=== PATIENT | female | born 2005 | race Caucasian/White ===

== ENCOUNTER 2024-11-17 15:51 | Emergency (ER) | payer SELFPAY ==
--- NOTE | 2024-11-17 16:27 | RAD REPORT ---
EXAMINATION: ONE VIEW CHEST XR CLINICAL INDICATION: Chest pain;Dyspnea TECHNIQUE: Frontal chest projection is submitted. Examination is limited by patient positioning and t echnique. COMPARISON: No prior exam. FINDINGS: The lungs are well inflated and clear. The heart is normal in size. No displaced fractures identified . IMPRESSION: No acute intrathoracic abnormalities.
[2024-11-17 16:58] LABS: Absolute Monocytes 0.1 K/uL (0.1-1.3); Absolute Neutrophil 1.1 K/uL (1.8-8.0); Basophils % 0.7 % (0-1.3); Eosinophils % 1.6 % (0-4.4); Hematocrit 29.1 % (36.0-45.0); Hemoglobin 9.5 g/dL (12.0-15.0); Lymphocytes % 44.1 % (15.3-44.8); MCH 25.4 pg (27.0-35.0); MCHC 32.8 g/dL (32.0-36.0); MCV 77.6 fL (80-100); MPV 7.7 fL (7.6-11.3); Monocytes % 5.8 % (3.3-12.3); Neutrophils % 47.8 % (41.7-73.7); Nucleated Red Blood Cells % 0.1 % (0-0); Platelets 240 thou/uL (152-406); RBC Red Blood Cell Count 3.75 M/uL (3.86-4.86); Red Cell Distribution Width 14.5 % (12.1-15.2)
[2024-11-17 17:09] LABS: PT Prothrombin Time 12.2 SECONDS (9.4-12.5); Protime INR 1.16
[2024-11-17 17:17] LABS: ALT/SGPT 18 U/L (13-56); AST/SGOT 19 U/L (15-37); Albumin 3.6 g/dL (3.4-5.0); Alkaline Phosphatase 59 U/L (45-117); Anion Gap 10.1 mEq/L (5.0-15.0); BUN Blood Urea Nitrogen 6 mg/dL (7-18); Bicarbonate 22 mEq/L (21-32); Bilirubin Total 0.2 mg/dL (0.2-1.0); Globulin 3.5 g/dL (2.3-3.5); Glomerular Filtration Rate 114 ml/min (=/>90); Glucose Level 100 mg/dL (74-106); Magnesium 2.1 mg/dL (1.6-2.4); NT PRO-BNP 87 pg/mL (<125); Potassium 3.1 mEq/L (3.5-5.1); Protein, Total 7.1 g/dL (6.4-8.2); Sodium Level 139 mEq/L (136-145)
[2024-11-17 17:18] LABS: Bilirubin Direct < 0.2 mg/dL (0-0.2); Troponin High Sensitivity < 3.0 pg/mL (<58.9)
[2024-11-17 17:19] LABS: D-Dimer < 0.215 FEUug/mL (0-0.500)
--- NOTE | 2024-11-17 18:33 | RAD REPORT ---
EXAMINATION: CTA CHEST PE CLINICAL INDICATION: Chest pain;Dyspnea TECHNIQUE: This examination was performed according to an angiographic protocol with 3D post-processi ng. This involves 3D reconstructions, MIPs, volume rendered images and/or shaded surface rendering. One or more of the following dose reduction techniques were used: Automated exposure control, adjustm ent of the mA and/or kV according to patient size, and/or iterative reconstruction. Unless otherwise specified, incidental findings do not require dedicated imaging follow-up. COMPARISON: No prior exam. FINDINGS: PULMONARY ARTERIES: Normal caliber. No evidence of pulmonary emboli to the subsegmental level. THORACIC AORTA: Normal caliber and configuration. LUNGS: No evidence of airspace or interstitial process. No nodules. PLEURA: No pleural effusion. No pneumothorax. MEDIASTINUM AND LYMPH NODES: No mediastinal mass or fluid collection. Normal size mediastinal, hilar, and axillary lymph nodes. OSSEOUS STRUCTURES AND CHEST WALL: Intact. UPPER ABDOMEN: No significant abnormalities. IMPRESSION: No evidence of pulmonary emboli to the subsegmental level.
[2024-11-17] MEDS ORDERED: POTASSIUM 25 MEQ EFFERV TAB ONE (19:03)
--- NOTE | 2024-11-17 20:50 | ER ---
Nurse's Notes [facility] Name: Brina Villa Age: 19 yrs Sex: Female : 2005 Arrival Date: 11/17/2024 Time: 15:51 Bed 25 Private MD: Diagnosis: Postural Orthostatic Tachycardia Syndome;Anemia, unspecified;Hypokalemia Presentation: 11/17 16:00 Chief complaint: Patient states: At 6 AM started having SOB, R sided CP, palpitations, ll1 tremors. Coronavirus screen: Client denies travel out of the [place] in the last 14 days. difficulty breathing, fatigue, shortness of breath, Client presents with at least one sign or symptom that may indicate coronavirus-19. Standard/surgical mask placed on the client. Ebola Screen: Patient denies travel to an Ebola-affected area in the 21 days before illness onset. Initial Sepsis Screen: Does the patient meet any 2 criteria? No. Patient's initial sepsis screen is negative. Does the patient have a suspected source of infection? No. Patient's initial sepsis screen is negative. Risk Assessment: Do you want to hurt yourself or someone else? Patient reports no desire to harm self or others. Onset of symptoms was November 17, 2024. 16:00 Method Of Arrival: Wheelchair ll1 16:00 Acuity: DEEP 2 ll1 Historical: - Allergies: 16:03 all histamines; ll1 16:03 gluten; ll1 16:03 red meat; ll1 - PMHx: 16:03 gastroparesis; POTS; IBS; fluid around heart; low BP; Anemia; ll1 - PSHx: 16:03 None; ll1 - Immunization history:: Adult Immunizations up to date. - Social history:: Smoking status: Reported history of juuling and/or vaping. Patient denies any tobacco usage or history of. Screenin:11 [facility] ED Fall Risk Assessment (Adult) History of falling in the last 3 months, iw including since admission No falls in past 3 months (0 pts) Confusion or Disorientation No (0 pts) Intoxicated or Sedated No (0 pts) Impaired Gait No (0 pts) Mobility Assist Device Used No (0 pt) Altered Elimination No (0 pt) Score/Fall Risk Level 0 - 2 = Low Risk Oriented to surroundings, Maintained a safe environment. Abuse screen: Denies threats or abuse. Denies injuries from another. Nutritional screening: No deficits noted. Tuberculosis screening: No symptoms or risk factors identified. Assessment: 17:18 General: Appears in no apparent distress. Behavior is anxious. Pain: Complains of pain iw in head and chest. Neuro: Level of Consciousness is awake, alert, obeys commands, Oriented to person, place, time, situation, Moves all extremities. Cardiovascular: Patient's skin is warm and dry. Respiratory: Respiratory effort is even, unlabored, Respiratory pattern is regular. Derm: Skin is pale. Musculoskeletal: Range of motion: intact in all extremities. 19:10 Reassessment: Patient appears in no apparent distress at this time. Patient and/or iw family updated on plan of care and expected duration. Pain level reassessed. Patient is alert, oriented x 3, equal unlabored respirations, skin warm/dry/pink. Patient states feeling better. Pain: Denies pain. Pain does not radiate. Pain began. 19:47 Reassessment: Patient appears in no apparent distress at this time. pt request to iw remove IV, repeat lactate sent to lab. 21:06 Reassessment: Patient appears in no apparent distress at this time. No changes from vc1 previously documented assessment. Patient and/or family updated on plan of care and expected duration. Pain level reassessed. Patient is alert, oriented x 3, equal unlabored respirations, skin warm/dry/pink. Vital Signs: 16:00 BP 115 / 80; Pulse 92; Resp 22; Temp 97.9; Weight 34.02 kg; Height 4 ft. 9 in. ; Pain ll1 8/10; 19:11 BP 101 / 69; Pulse 65; Resp 16; Pulse Ox 100% on R/A; iw 16:00 Body Mass Index 16.23 (34.02 kg, 144.78 cm) ll1 16:00 Pain Scale: Adult ll1 ED Course: 15:55 Patient arrived in ED. al6 15:58 Claudine Toure PA-C is PHCP. sb4 15:59 Jessica Mcfarland MD is Attending Physician. sb4 16:03 Triage completed. ll1 16:06 Arm band placed on. ll1 16:06 Patient has correct armband on for positive identification. Provided Education on: . iw Client placed on continuous cardiac and pulse oximetry monitoring. NIBP monitoring applied. 16:14 Radiology exam delayed due to lab results not completed at this time. (BUN/Creatinine) id test not completed at this time. IV insertion attempt and/or patient not having appropriate IV at this time. 16:23 XRAY Chest (1 view) In Process Unspecified. EDMS 16:50 Initial lab(s) drawn, by me, sent to lab. Inserted saline lock: 20 gauge in right iw antecubital area, using aseptic technique. Blood collected. Flushed with 10 mL NS. 17:18 Violet Grayson, RN is Primary Nurse. iw 17:25 Radiology exam delayed due to test not completed at this time. jc4 17:50 Test, Serum Sent. iw 18:27 CT Chest For PE Angio In Process Unspecified. EDMS 19:48 No provider procedures requiring assistance completed. IV discontinued, intact, iw bleeding controlled, No redness/swelling at site. Pressure dressing applied. Patient maintains SpO2 saturation greater than 95% on room air. Administered Medications: 19:12 Drug: Potassium PO Effervescent Tablet 50 mEq PO once; dissolve in 4 ounces of water or iw juice Route: PO; Medication: 17:18 VIS not applicable for this client. iw Outcome: 20:49 Discharge ordered by . sb4 21:05 Discharged to home via wheelchair, with significant other, vc1 21:05 Condition: stable 21:05 Discharge instructions given to patient, Instructed on discharge instructions, follow up and referral plans. Demonstrated understanding of instructions, follow-up care, 21:07 Patient left the ED. vc1 Signatures: Dispatcher [employer] EDNY Violet Grayson, GALINA MOJICA Joseph Quinn Lynsay RN RN ll1 Odalis Mohan RN RN vc1 Claudine Toure, PA-C PAAngelito Everett4 Samina Andrews
--- NOTE | 2024-11-17 20:50 | EDPHYS ---
Physician Documentation [facility] Name: Brina Villa Age: 19 yrs Sex: Female : 2005 Arrival Date: 11/17/2024 Time: 15:51 Bed 25 Private MD: ED Physician Jessica Mcfarland HPI: 11/17 16:07 This 19 yrs old Female presents to ER via Wheelchair with complaints of Chest Pain, sb4 Breathing Difficulty. 16:07 Patient reports right-sided chest pain and shortness of breath that began this morning sb4 additionally, she states she feels like her whole body is numb/pins and needle sensation. States that she was told about a month ago that she had "fluid around her heart "but nothing has been done about it. Additionally, she was told she is anemic and was supposed to receive a blood transfusion but did not consent to it because she was "scared "she is currently taking medications for gastritis and anxiety. Historical: - Allergies: 16:03 all histamines; ll1 16:03 gluten; ll1 16:03 red meat; ll1 - PMHx: 16:03 gastroparesis; POTS; IBS; fluid around heart; low BP; Anemia; ll1 - PSHx: 16:03 None; ll1 - Immunization history:: Adult Immunizations up to date. - Social history:: Smoking status: Reported history of juuling and/or vaping. Patient denies any tobacco usage or history of. ROS: 16:09 Constitutional: Negative for fever, chills, and weight loss, sb4 16:09 Cardiovascular: Positive for chest pain, 16:09 Respiratory: Positive for shortness of breath, 16:09 Neuro: Positive for tingling, 16:09 All other systems are negative, Exam: 16:09 Head/Face: Normocephalic, atraumatic. Eyes: Extra-ocular motions intact. Periorbital sb4 areas with no swelling, redness, or edema. ENT: Mucous membranes moist. Cardiovascular: Regular rate and rhythm with a normal S1 and S2. Abdomen/GI: Soft, non-tender, no distension. Skin: Warm, dry with normal turgor. Normal color with no rashes, no lesions, and no evidence of cellulitis. 16:09 Constitutional: The patient appears alert, awake, anxious, pale, 16:09 Respiratory: the patient does not display signs of respiratory distress, Respirations: normal, Breath sounds: are clear throughout, Respiratory rate: 22 Vital Signs: 16:00 BP 115 / 80; Pulse 92; Resp 22; Temp 97.9; Weight 34.02 kg; Height 4 ft. 9 in. ; Pain ll1 8/10; 19:11 BP 101 / 69; Pulse 65; Resp 16; Pulse Ox 100% on R/A; iw 16:00 Body Mass Index 16.23 (34.02 kg, 144.78 cm) ll1 16:00 Pain Scale: Adult ll1 MDM: 15:59 Medical Screening Exam initiated sb4 22:16 Data reviewed: vital signs, nurses notes, lab test result(s), EKG, radiologic studies, sb4 and as a result, I will discharge patient. Counseling: I had a detailed discussion with the patient and/or guardian regarding the historical points, exam findings, and any diagnostic results supporting the discharge/admit diagnosis, lab results, radiology results, the need for outpatient follow up, for definitive care, to return to the emergency department if symptoms worsen or persist or if there are any questions or concerns that arise at home. 11/17 16:06 Order name: Basic Metabolic Panel; Complete Time: 17:23 sb4 11/17 16:06 Order name: CBC with Diff; Complete Time: 17:03 sb4 11/17 16:06 Order name: D-Dimer; Complete Time: 17:23 sb4 11/17 16:06 Order name: LFT's; Complete Time: 17:23 sb4 11/17 16:06 Order name: Magnesium; Complete Time: 17:23 sb4 11/17 16:06 Order name: NT PRO-BNP; Complete Time: 17:23 sb4 11/17 16:06 Order name: PT-INR; Complete Time: 17:23 sb4 11/17 16:06 Order name: Troponin HS; Complete Time: 17:23 sb4 11/17 16:06 Order name: Test, Serum; Complete Time: 18:04 sb4 11/17 16:06 Order name: Blood Culture Adult (2) sb4 11/17 16:06 Order name: Lactate w/ 2H reflex if indic.; Complete Time: 17:23 sb4 11/17 17:22 Order name: Ghost Lactate-NO COLLECT Timer; Complete Time: 19:22 EDMS 11/17 18:37 Order name: Lactate w/ 2H reflex if indic.; Complete Time: 20:13 sb4 11/17 16:06 Order name: XRAY Chest (1 view); Complete Time: 16:29 sb4 11/17 16:06 Order name: CT Chest For PE Angio; Complete Time: 18:36 sb4 11/17 16:06 Order name: EKG; Complete Time: 16:06 sb4 11/17 16:06 Order name: Cardiac monitoring; Complete Time: 19:12 sb4 11/17 16:06 Order name: EKG - Nurse/Tech; Complete Time: 17:28 sb4 11/17 16:06 Order name: IV Saline Lock; Complete Time: 17:00 sb4 11/17 16:06 Order name: Labs collected and sent; Complete Time: 17:00 sb4 11/17 16:06 Order name: O2 Per Protocol; Complete Time: 17:50 sb4 11/17 16:06 Order name: O2 Sat Monitoring; Complete Time: 17:50 sb4 EC:28 Rate is 63 beats/min. Rhythm is regular, Sinus Rhythm. DE interval is shortened at 86 sb4 msec. QRS interval is normal at 86 msec. QT interval is normal at 410 msec. No Q waves. T waves are Normal. No ST changes noted. Clinical impression: No evidence of ischemia. Interpreted by me. Reviewed by me. Administered Medications: 19:12 Drug: Potassium PO Effervescent Tablet 50 mEq PO once; dissolve in 4 ounces of water or iw juice Route: PO; Disposition Summary: 11/17/24 20:49 Discharge Ordered Notes: Location: Home sb4 Problem: new sb4 Symptoms: have improved sb4 Condition: Stable sb4 Diagnosis - Postural Orthostatic Tachycardia Syndome sb4 - Anemia, unspecified sb4 - Hypokalemia sb4 Followup: sb4 - With: Emergency Department - When: As needed - Reason: Trouble breathing, Worsening of condition Discharge Instructions: - Discharge Summary Sheet sb4 - Postural Orthostatic Tachycardia Syndrome sb4 - Iron Deficiency Anemia, Adult, Lput-ic-Zmeb sb4 - Hypokalemia sb4 Forms: - Patient Portal Instructions sb4 - Leadership Thank You Letter sb4 Signatures: Dispatcher [employer] Violet Pedro RN Erika Olson RN RN ll1 Claudine Toure, PA-C PA-Talon sb4 Corrections: (The following items were deleted from the chart) 16:07 16:06 BASIC METABOLIC PANEL+C.LAB.BRZ ordered. EDMS EDMS 16:07 16:06 CBC+H.LAB.BRZ ordered. EDMS EDMS 16:07 16:06 D-DIMER+COAG.LAB.BRZ ordered. EDMS EDMS 16: 16:06 HEPATIC FUNCTION+C.LAB.BRZ ordered. EDMS EDMS 16: 16:06 MAGNESIUM+C.LAB.BRZ ordered. EDMS EDMS 16: 16:06 PROBNP+C.LAB.BRZ ordered. EDMS EDMS 16:07 16:06 PROTIME (+INR)+COAG.LAB.BRZ ordered. EDMS EDMS 16:07 16:06 Troponin High Sensitivity+C.LAB.BRZ ordered. EDMS EDMS 16:07 16:06 TEST, SERUM+SC.LAB.BRZ ordered. EDMS EDMS 16:07 16:06 BLOOD CULTURE*+BA.LAB.BRZ ordered. EDMS EDMS 16:07 16:06 LACTATE+C.LAB.BRZ ordered. EDMS EDMS 16:07 16:07 TYPE AND SCREEN+BB.LAB.BRZ ordered. EDMS EDMS 18:37 18:37 LACTATE+C.LAB.BRZ ordered. EDMS EDMS
[2024-11-19 09:39] VITALS: TEMP 97.9
[2024-11-19 09:41] VITALS: BP 101/69; O2SAT 100
--- NOTE | 2024-11-22 12:21 | EKG ---
Test Date: 2024-11-17 Test Time: 17:27:01 Brokerage Purchase And Sale Clerk: BRIA MEASUREMENT RESULTS: Intervals: Rate: 63 ME: 86 QRSD: 86 QT: 410 QTc: 419 [place]: P: 22 ME: 86 QRS: 68 T: 36 INTERPRETIVE STATEMENTS: Sinus rhythm with short ME Otherwise normal ECG No previous ECG available for comparison Electronically Signed On 11-22-24 12:15:02 WEB DEVELOPMENT INSTRUCTOR by Tobi Mccarthy
== END 2024-11-17 21:07 | disposition home or self-care (01) ==
LOC: ER 15:51
DX: G90.A Postural orthostatic tachycardia syndrome [POTS] (principal); D64.9 Anemia, unspecified; E87.6 Hypokalemia
CPT/HCPCS: 36415; 71045; 71275; 80048; 80076; 83605; 83735; 83880; 84484; 84703; 85025; 85379; 85610; 87040; 93005; 99284; Q9967

== ENCOUNTER 2024-11-24 17:29 | Emergency (ER) | payer SELFPAY ==
--- OUTSIDE RECORDS SUMMARY | 2024-11-24 17:32 | XMS REPORT | Clinical Summary ---
Author Name Unknown Organization [facility] Address [address] [place] [id number] Care Team Providers Care Antisqueak Worker Name Role Phone Marcelino Thompson Unavailable Herb Miranda MD Primary Care Provider [phone] Encounters Date Type Department Care Team Description 09/15/2024 8:15 PM POLICEMAN Ancillary Procedure Image Library [address] [place] [address] Herb Miranda MD Cancer 09/15/2024 8:10 PM POLICEMAN Ancillary Procedure Image Library [address] [place] [address] Herb Miranda MD Cancer 09/15/2024 8:05 PM POLICEMAN Ancillary Procedure Image Library [address] [place] [address] Herb Miranda MD Cancer 09/15/2024 8:00 PM POLICEMAN Ancillary Procedure Image Library [address] [place] [address] Herb Miranda MD Cancer after 11/25/2023 Social History Tobacco Use Types Packs/Day Years Used Date Smoking Tobacco: Never Assessed Comments Unknown Sex and Gender Information Value Date Recorded Sex Assigned at Not on file Legal Sex Female 2:16 PM CDT Gender Identity Not on file Sexual Orientation Not on file Plan of Treatment Upcoming Encounters Date Type Department Care Team (Late st Contact Info) Description 12/20/2024 8:00 AM CDT NPR MDA PATIENT ACCESS Dea Gallo MD [address] [place] [id number] [email or web address] 12/23/2024 10:00 AM CDT [facility]astroenterology, Hepatology & Nutrition [address] [facility] [address], 7th [place] [address] Herb Miranda MD [address] [place] [address] [email or web address] Health Maintenance Due Date Last Done Comments COVID-19 Vaccine ( season) 2024 03/10/2021, 02/17/2021 Influenza Vaccine (#1) 2024 , 06/26/2020, 08/12/2019, Additional history exists Pneumococcal Vaccine Aged Out No long er eligible based on patient's age to complete this topic Procedures Procedure Name Priority Date/Time Associated Diagnosis Comments OSI CHEST Routine 09/07/2024 9:56 AM POLICEMAN Cancer OSI CHEST Routine 07/29/2024 9:56 AM CDT Cancer OSI CHEST Routine 06/06/2024 9:56 AM CDT Cancer OSI CHEST Routine 05/12/2024 9:55 AM CDT Cancer after 11/25/2023 Results * OSI Chest (09/07/2024 9:56 AM POLICEMAN) Only the most recent of4 resultswithin the time period is included. Narrative Systemgenerated, Documentation - 09/15/2024 9:56 AM POLICEMAN Study acquired at another institution. For comparison only. No MD Gutierrez originated interpretation requested or available. Herb Miranda MD IMG OUTSIDE IMAGE ORDERABLES F inal Result after 11/25/2023 Insurance BCBS PPO POS OUT OF STATE GENERIC BCBS PPO POS OUT OF STATE GENERIC Member Subscriber Plan / Payer (Ef fective 2023-Present) Name:Brina Villa Relation to Subscriber:Child Name:REA DE ANDA Date of :1982 (Home) Address: [address] [place] [id number] Payer ID:[id number] Type:PPO Address: [address] [place] [id number] Care Teams Antisqueak Worker Relationship Specialty Start Date End Date Marcelino Thompson [address] [place] [address] PCP - External Follow Up A 08/06/24 [place] [address] [place] [phone] [email or web address] PCP - General Gastroenterology, Hepatology and Nutrition 08/12/24
--- NOTE | 2024-11-24 19:02 | RAD REPORT ---
EXAMINATION: ONE VIEW CHEST XR CLINICAL INDICATION: DYSPNEA TECHNIQUE: Frontal chest projection is submitted. Examination is limited by patient positioning and t echnique. COMPARISON: 11/17/2024 FINDINGS: The lungs are well inflated and clear. The heart is normal in size. No displaced fractures identified . IMPRESSION: No acute intrathoracic abnormalities.
--- NOTE | 2024-11-24 19:28 | ER ---
Nurse's Notes [facility] Name: Brina Villa Age: 19 yrs Sex: Female : 2005 Arrival Date: 11/24/2024 Time: 17:29 Bed 16 Private MD: Diagnosis: Hypotension, unspecified Presentation: 11/24 17:36 Chief complaint: Patient states: STATES LOW BP 80'S SYSTOLIC. STATES TOOK MIDODRINE db TODAY AT 11AM AND 1 OR 2PM. COMPLAINS OF FEELING WEAK. STATES HAS PODS. Coronavirus screen: Client denies travel out of the [place] in the last 14 days. At this time, the client does not indicate any symptoms associated with coronavirus-19. Ebola Screen: Patient negative for fever greater than or equal to 101.5 degrees Fahrenheit, and additional compatible Ebola Virus Disease symptoms Patient denies exposure to infectious person. Patient denies travel to an Ebola-affected area in the 21 days before illness onset. No symptoms or risks identified at this time. Initial Sepsis Screen: Does the patient meet any 2 criteria? No. Patient's initial sepsis screen is negative. Does the patient have a suspected source of infection? No. Patient's initial sepsis screen is negative. Risk Assessment: Do you want to hurt yourself or someone else? Patient reports no desire to harm self or others. Onset of symptoms was November 24, 2024. 17:36 Method Of Arrival: Ambulatory db 17:36 Acuity: DEEP 3 db Triage Assessment: 17:38 General: Appears in no apparent distress. comfortable, Behavior is calm, cooperative. db Pain: Denies pain. Neuro: Level of Consciousness is awake, alert, obeys commands, Oriented to person, place, time, situation. Respiratory: Reports shortness of breath Airway is patent Respiratory effort is even, unlabored, Respiratory pattern is regular, symmetrical. AS400 DEVELOPER: 17:38 LMP 11/17/2024, unknown db Historical: - Allergies: 17:38 all histamines; db 17:38 Gluten; db 17:38 red meat; db - PMHx: 17:38 Anemia; Gastroparesis; fluid around heart; ibs; low bp; POTS; db - Immunization history:: Adult Immunizations unknown. - Infectious Disease History:: Denies. - Social history:: Smoking status: unknown. Screenin:15 [facility] ED Fall Risk Assessment (Adult) History of falling in the last 3 months, kj2 including since admission No falls in past 3 months (0 pts) Confusion or Disorientation No (0 pts) Intoxicated or Sedated No (0 pts) Impaired Gait No (0 pts) Mobility Assist Device Used No (0 pt) Altered Elimination No (0 pt) Score/Fall Risk Level 0 - 2 = Low Risk Maintained a safe environment, Hourly rounding (assess needs \T\ fall precautionary measures) done. Abuse screen: Denies threats or abuse. Denies injuries from another. Nutritional screening: No deficits noted. Tuberculosis screening: No symptoms or risk factors identified. Assessment: 19:15 General: Appears in no apparent distress. Behavior is calm, cooperative. Pain: Denies kj2 pain. Neuro: Level of Consciousness is awake, alert, obeys commands, Oriented to person, place, time, situation. Cardiovascular: Patient's skin is warm and dry. Respiratory: Airway is patent Respiratory effort is unlabored. GI: No signs and/or symptoms were reported involving the gastrointestinal system. : No signs and/or symptoms were reported regarding the genitourinary system. 19:36 Reassessment: Patient appears in no apparent distress at this time. Patient is alert, kj2 oriented x 3, equal unlabored respirations, skin warm/dry/pink. 19:40 Reassessment: pt refused IV placement and other orders, provider notified. kj2 Vital Signs: 17:36 BP 97 / 45; Pulse 92; Resp 18; Temp 98.3; Pulse Ox 98% ; Weight 34.02 kg; Height 4 ft. db 9 in. ; 19:36 BP 97 / 58; Pulse 82; Resp 18; Temp 98.4; Pulse Ox 98% on R/A; kj2 17:36 Body Mass Index 16.23 (34.02 kg, 144.78 cm) db ED Course: 17:31 Patient arrived in ED. gm2 17:33 Agueda Ordaz [facility]-C [facility]. kb 17:33 Jerry Ruth MD is Attending Physician. kb 17:38 Triage completed. db 17:38 Arm band placed on Patient placed in an exam room. db 18:57 Chest Single View XRAY In Process Unspecified. EDMS 19:15 Patient has correct armband on for positive identification. Adult w/ patient. Provided kj2 Education on: call light. 19:27 Katelynn Quinn, RN is Primary Nurse. kj2 19:39 No provider procedures requiring assistance completed. kj2 19:41 Patient did not have IV access during this emergency room visit. kj2 Administered Medications: 19:39 Not Given (Patient Refused): ns 0.9% 1000 ml IV at 1000 ml once; to be given as a bolus kj2 over 60 minutes Medication: 19:15 VIS not applicable for this client. kj2 Outcome: 19:28 Discharge ordered by . kb 19:39 Discharged to home via wheelchair, with family, kj2 19:39 Condition: stable 19:39 Discharge instructions given to patient, Instructed on discharge instructions, follow up and referral plans. Demonstrated understanding of instructions, follow-up care, 19:41 Patient left the ED. kj2 Signatures: Dispatcher [employer] EDMS Agueda Ordaz, GAMAL-C MILLER APPRENTICE-Carolina Pearson, RN RN Carrie Larsen 2 Katelynn Quinn, RN RN kj2
--- NOTE | 2024-11-24 19:28 | EDPHYS ---
Physician Documentation [facility] Name: Brina Villa Age: 19 yrs Sex: Female : 2005 Arrival Date: 11/24/2024 Time: 17:29 Bed 16 Private MD: ED Physician Jerry Ruth HPI: 11/24 19:26 This 19 yrs old Female presents to ER via Ambulatory with complaints of Low Blood kb pressure, General Weakness. 19:28 Pt is a 19 year old female who presents for hypotension. STates she has chronic kb hypotension and takes midodrine as needed. Reports systolic bp in the 80s this morning so she took 2 midodrine today. Normal BP is high 90s/low 100s systolic. Reports dizziness and fatigue, which she reports is normal for her when her BP gets low. . 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 - Infectious Disease History:: Denies. - Social history:: Smoking status: unknown. ROS: 19:30 Constitutional: As per HPI kb Exam: 19:30 Constitutional: This is a well developed, well nourished patient who is awake, alert, kb and in no acute distress. Head/Face: Normocephalic, atraumatic. ENT: Moist Mucous membranes Cardiovascular: Regular rate Respiratory: Respirations even and unlabored. No increased work of breathing. Talking in full sentences Skin: Warm, dry with normal turgor. Normal color. MS/ Extremity: Pulses equal, no cyanosis. Neurovascular intact. Full, normal range of motion. Neuro: Awake and alert, GCS 15, oriented to person, place, time, and situation. Vital Signs: 17:36 BP 97 / 45; Pulse 92; Resp 18; Temp 98.3; Pulse Ox 98% ; Weight 34.02 kg; Height 4 ft. db 9 in. ; 19:36 BP 97 / 58; Pulse 82; Resp 18; Temp 98.4; Pulse Ox 98% on R/A; kj2 17:36 Body Mass Index 16.23 (34.02 kg, 144.78 cm) db MDM: 17:33 Medical Screening Exam initiated 19:30 Data reviewed: vital signs, nurses notes. 19:30 Differential diagnosis: hypotension, anemia, dehydration. Counseling: I had a detailed discussion with the patient and/or guardian regarding the historical points, exam findings, and any diagnostic results supporting the discharge/admit diagnosis, the need for outpatient follow up, a family practitioner, to return to the emergency department if symptoms worsen or persist or if there are any questions or concerns that arise at home. ED course: Pt was moved into a room and is requesting to be discharged. States she knows how to take care of this at home and doesn't want to stay any longer. States she already knows her blood work will show anemia, but not low enough for a blood transfusion because that is what she is always told. I asked if we could give her IV fluids, but she denied. States she will drink liquid iv at home. Risks discussed and pt is awake, alert and oriented x3. Has decision making capacity. . 11/24 17:40 Order name: Chest Single View XRAY; Complete Time: 19:03 11/24 17:40 Order name: Cardiac monitoring 11/24 17:40 Order name: EKG - Nurse/Tech 11/24 17:40 Order name: IV Saline Lock 11/24 17:40 Order name: Labs collected and sent 11/24 17:40 Order name: NPO 11/24 17:40 Order name: O2 Per Protocol 11/24 17:40 Order name: O2 Sat Monitoring 11/24 17:40 Order name: Orthostatics Administered Medications: 19:39 Not Given (Patient Refused): ns 0.9% 1000 ml IV at 1000 ml once; to be given as a bolus kj2 over 60 minutes Disposition: 20:01 Co-signature as Attending Physician, Jerry Ruth MD I reviewed the patient's care rt provided by the Advanced Practice Provider and agree with the diagnosis and treatment plan. Disposition Summary: 11/24/24 19:28 Discharge Ordered Notes: Location: Home Condition: Stable kb Diagnosis - Hypotension, unspecified kb Followup: kb - With: Emergency Department - When: As needed - Reason: Worsening of condition Followup: kb - With: Private Physician - When: 2 - 3 days - Reason: Recheck today's complaints, Continuance of care, Re-evaluation by your physician Discharge Instructions: - Discharge Summary Sheet kb - Hypotension, [id number]-[id number] kb Forms: - Medication Reconciliation Form kb - Antibiotic Education kb - Prescription Opioid Use kb - Patient Portal Instructions kb - Leadership Thank You Letter kb Signatures: Dispatcher [employer] EDMS Agueda Ordaz, HAROON YEUNG-Carolina Pearson RN RN db Jerry Ruth MD MD rt Katelynn Quinn RN kj2 Corrections: (The following items were deleted from the chart) 19:30 19:28 Pt is a 19 year old female who presents for hypotension. STates she has chronic kb hypotension and takes midodrine as needed. Reports systolic bp in the 80s this morning so she took 2 midodrine today. Normal BP is high 90s/low 100s systolic. Reports dizziness, which she reports is normal for her when her BP gets low. . kb
[2024-11-24 19:46] VITALS: O2SAT 98
[2024-11-24 19:48] VITALS: BP 97/58; TEMP 98.4
== END 2024-11-24 19:41 | disposition home or self-care (01) ==
LOC: ER 17:29
DX: I95.9 Hypotension, unspecified (principal)
CPT/HCPCS: 71045; 99283

== ENCOUNTER 2024-12-14 08:57 | Emergency (ER) | payer SELFPAY ==
--- OUTSIDE RECORDS SUMMARY | 2024-12-14 09:01 | XMS REPORT | Clinical Summary ---
Author Name Unknown Organization [facility] Address [address] [place] [address] Care Team Providers Care [employer] Fsc[employer] Developer Name Role Phone Marcelino Thompson Unavailable Herb Miranda MD Primary Care Provider [phone] Encounters Date Type Department Care Team Description 09/15/2024 8:15 PM DIRECTOR BEHAVIORAL HEALTH Ancillary Procedure Image Library [address] [place] [id number] Herb Miranda MD Cancer 09/15/2024 8:10 PM DIRECTOR BEHAVIORAL HEALTH Ancillary Procedure Image Library [address] [place] [id number] Herb Miranda MD Cancer 09/15/2024 8:05 PM DIRECTOR BEHAVIORAL HEALTH Ancillary Procedure Image Library [address] [place] [id number] Herb Miranda MD Cancer 09/15/2024 8:00 PM DIRECTOR BEHAVIORAL HEALTH Ancillary Procedure Image Library [address] [place] [address] Herb Miranda MD Cancer after 12/15/2023 Social History Tobacco Use Types Packs/Day Years [...] NPR MDA PATIENT ACCESS Dea Gallo MD [facility] [place] [address] [email or web address] 12/23/2024 10:00 AM CDT [facility]astroenterology[facility] Hepatology & Nutrition [address] [place] [address] [address] [place] [address] Herb Miranda MD [address] [place] [address] [email or web address] Health Maintenance Due Date Last Done Comments COVID-19 Vaccine ( season) 2024 03/10/2021, 02/17/2021 Influenza Vaccine (#1) 2024 , 06/26/2020, 08/12/2019, Additional history exists Pneumococcal Vaccine Aged Out No long er eligible based on patient's age to complete this topic Procedures Procedure Name Priority Date/Time Associated Diagnosis Comments OSI CHEST Routine 09/07/2024 9:56 AM DIRECTOR BEHAVIORAL HEALTH Cancer OSI CHEST Routine 07/29/2024 9:56 AM CDT Cancer OSI CHEST Routine 06/06/2024 9:56 AM CDT Cancer OSI CHEST Routine 05/12/2024 9:55 AM CDT Cancer after 12/15/2023 Results * OSI Chest (09/07/2024 9:56 AM DIRECTOR BEHAVIORAL HEALTH) Only the most recent of4 resultswithin the time period is included. Narrative Systemgenerated, Documentation - 09/15/2024 9:56 AM DIRECTOR BEHAVIORAL HEALTH Study acquired at another institution. For comparison only. No MD Gutierrez originated interpretation requested or available. us Herb Miranda MD IMG OUTSIDE IMAGE ORDERABLES F inal Result after 12/15/2023 Insurance BCBS PPO POS OUT OF STATE GENERIC BCBS PPO POS OUT OF STATE GENERIC Care Teams [employer] F[employer] Developer Relationship Specialty Start Date End Date Marcelino Thompson [id number] [place] [address] PCP - External Follow Up A 08/06/24 [place] [address] [place] [id number] [email or web address] PCP - General Gastroenterology, Hepatology and Nutrition 08/12/24
[2024-12-14 10:31] LABS: Absolute Lymphocytes (CBC) 0.9 K/uL (0.7-4.9); Absolute Monocytes 0.3 K/uL (0.1-1.3); Absolute Neutrophil 2.2 K/uL (1.8-8.0); Basophils % 0.5 % (0-1.3); Eosinophils % 0.9 % (0-4.4); Hematocrit 25.1 % (36.0-45.0); Hemoglobin 8.3 g/dL (12.0-15.0); Lymphocytes % 27.3 % (15.3-44.8); MCH 24.6 pg (27.0-35.0); MCV 74.4 fL (80-100); MPV 7.5 fL (7.6-11.3); Monocytes % 8.8 % (3.3-12.3); Neutrophils % 62.5 % (41.7-73.7); Platelets 265 thou/uL (152-406); RBC Red Blood Cell Count 3.38 M/uL (3.86-4.86)
[2024-12-14 10:50] LABS: Anion Gap 9.3 mEq/L (5.0-15.0); BUN Blood Urea Nitrogen 14 mg/dL (7-18); Bicarbonate 23 mEq/L (21-32); Glomerular Filtration Rate 129 ml/min (=/>90); Glucose Level 78 mg/dL (74-106); Potassium 3.3 mEq/L (3.5-5.1); Sodium Level 139 mEq/L (136-145)
[2024-12-14 10:51] LABS: Troponin High Sensitivity < 3.0 pg/mL (<58.9)
--- NOTE | 2024-12-14 12:09 | RAD REPORT ---
Procedure: Chest Single View HISTORY: Chest pain COMPARISON: 2024 FINDINGS: The lungs appear clear of acute infiltrate. Lungs are hyperaerated. No significant pleural effusion noted. The heart is normal size. IMPRESSION: No acute abnormality is displayed.
[2024-12-14 15:57] LABS: Specific Gravity 1.022 (1.005-1.030)
--- NOTE | 2024-12-14 16:44 | RAD REPORT ---
EXAMINATION: CTA CHEST PE CLINICAL INDICATION: CHEST PAIN TECHNIQUE: This examination was performed according to an angiographic protocol with 3D post-processi ng. This involves 3D reconstructions, MIPs, volume rendered images and/or shaded surface rendering. One or more of the following dose reduction techniques were used: Automated exposure control, adjustm ent of the mA and/or kV according to patient size, and/or iterative reconstruction. Unless otherwise specified, incidental findings do not require dedicated imaging follow-up. COMPARISON: No prior exam. FINDINGS: PULMONARY ARTERIES: Normal caliber. No evidence of pulmonary emboli to the subsegmental level. THORACIC AORTA: Normal caliber and configuration. LUNGS: No evidence of airspace or interstitial process. No nodules. PLEURA: No pleural effusion. No pneumothorax. MEDIASTINUM AND LYMPH NODES: No mediastinal mass or fluid collection. Normal size mediastinal, hilar, and axillary lymph nodes. OSSEOUS STRUCTURES AND CHEST WALL: Intact. UPPER ABDOMEN: No significant abnormalities. IMPRESSION: No evidence of pulmonary emboli to the subsegmental level.
--- NOTE | 2024-12-14 17:25 | ER ---
Nurse's Notes [facility] Name: Brina Villa Age: 19 yrs Sex: Female : 2005 Arrival Date: 12/14/2024 Time: 08:57 Bed 26 Private MD: Diagnosis: Chest pain, unspecified Presentation: 12/14 09:48 Chief complaint: Right upper chest pain, palpitations, and SOB x 2 days, left sided hb chest pain after mechanical fall from standing today. Coronavirus screen: At this time, the client does not indicate any symptoms associated with coronavirus-19. Ebola Screen: No symptoms or risks identified at this time. Initial Sepsis Screen: Does the patient meet any 2 criteria? No. Patient's initial sepsis screen is negative. Does the patient have a suspected source of infection? No. Patient's initial sepsis screen is negative. Risk Assessment: Do you want to hurt yourself or someone else? Patient reports no desire to harm self or others. Onset of symptoms was December 13, 2024. 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 - Infectious Disease History:: Denies. - Social history:: Smoking status: Reported history of juuling and/or vaping. Screenin:35 [facility] ED Fall Risk Assessment (Adult) History of falling in the last 3 months, me1 including since admission No falls in past 3 months (0 pts) Confusion or Disorientation No (0 pts) Intoxicated or Sedated No (0 pts) Impaired Gait No (0 pts) Mobility Assist Device Used No (0 pt) Altered Elimination No (0 pt) Score/Fall Risk Level 0 - 2 = Low Risk Maintained a safe environment, Provided non-skid footwear, Hourly rounding (assess needs \T\ fall precautionary measures) done. Abuse screen: Denies threats or abuse. Nutritional screening: No deficits noted. Tuberculosis screening: No symptoms or risk factors identified. Assessment: 13:35 General: Appears uncomfortable, well groomed, well developed, well nourished, Behavior me1 is calm, cooperative, appropriate for age, Reports Right upper chest pain, palpitations, and SOB x 2 days, left sided chest pain after mechanical fall from standing today. Pain: Complains of pain in left lateral anterior chest Pain does not radiate. Pain currently is 6 out of 10 on a pain scale. Quality of pain is described as aching, Pain began 1 day ago. Is continuous. Neuro: Level of Consciousness is awake, alert, obeys commands, Oriented to person, place, time, situation, Appropriate for age. Cardiovascular: Patient's skin is warm and dry. Cardiovascular: Reports chest pain, palpitations, shortness of breath, since 2 days ago. Respiratory: Airway. Respiratory: Reports shortness of breath since 2 days ago. GI: No signs and/or symptoms were reported involving the gastrointestinal system. : No signs and/or symptoms were reported regarding the genitourinary system. EENT: No signs and/or symptoms were reported regarding the EENT system. Derm: Skin is intact, is healthy with good turgor, Skin is pink, warm \T\ dry. Musculoskeletal: No signs and/or symptoms reported regarding the musculoskeletal system. Vital Signs: 09:48 BP 97 / 62; Pulse 100; Resp 20; Temp 98.2; Pulse Ox 100% on R/A; Weight 36.29 kg; hb Height 4 ft. 9 in. ; Pain 8/10; 14:00 BP 100 / 60; Pulse 78; Resp 15; Pulse Ox 100% ; me1 15:00 BP 95 / 58; Pulse 73; Resp 16; Pulse Ox 100% ; me1 16:00 BP 95 / 62; Pulse 70; Resp 14; Pulse Ox 100% ; me1 17:00 BP 107 / 67; Pulse 83; Resp 13; Pulse Ox 100% ; me1 17:28 BP 97 / 60; Pulse 76; Resp 16; Temp 98.4; Pulse Ox 100% ; me1 09:48 Body Mass Index 17.31 (36.29 kg, 144.78 cm) hb 09:48 Pain Scale: Adult hb ED Course: 08:59 Patient arrived in ED. im 09:50 Triage completed. hb 09:50 Arm band placed on. hb 09:54 EKG done, reviewed by Anuel Mason MD. hb 10:01 Anuel Mason MD is Attending Physician. jj9 10:26 CBC with Diff Sent. bc6 10:26 Troponin HS Sent. bc6 10:26 Initial lab(s) drawn, by me, sent to lab. Inserted saline lock: 20 gauge in right bc6 antecubital area, using aseptic technique. Blood collected. Flushed with 10 mL NS. 11:12 XRAY Chest (1 view) In Process Unspecified. EDMS 13:35 Patient has correct armband on for positive identification. Bed in low position. Call me1 light in reach. Side rails up X2. Provided Education on: POC. Verbalized understanding.. Client placed on continuous cardiac and pulse oximetry monitoring. NIBP monitoring applied. cell geneticist on. Pulse ox on. NIBP on. 13:35 No provider procedures requiring assistance completed. Patient maintains SpO2 me1 saturation greater than 95% on room air. 13:36 Massiel Bradley, RN is Primary Nurse. me1 14:45 Repeat lab(s) drawn. by me, sent to lab. tm3 15:50 Urine collected: clean catch specimen, clear. tm3 16:17 CT Chest For PE Angio In Process Unspecified. EDMS 17:28 IV discontinued, intact, bleeding controlled, No redness/swelling at site. Pressure me1 dressing applied. Administered Medications: No medications were administered Medication: 13:35 VIS not applicable for this client. me1 Outcome: 17:24 Discharge ordered by . jj9 17:33 Discharged to home ambulatory, with friend, me1 17:33 Condition: stable 17:33 Discharge instructions given to patient, Instructed on discharge instructions, follow up and referral plans. Demonstrated understanding of instructions, follow-up care, 17:33 Patient left the ED. me1 Signatures: Dispatcher [employer] EDOR Luke Jenkins tm3 Coral Fischer, RN RN Jesicajaylen [facility] Karen Lee Massiel Bradley, RN RN me1 Anuel Mason MD MD jj9 Corrections: (The following items were deleted from the chart) 09:51 09:48 BP 93 / 57; Pulse 100bpm; Resp 20bpm; Pulse Ox 100% RA; Temp 98.2F; 36.29 kg; hb Height 4 ft. 9 in.; BMI: 17.3; Pain 05/08, Adult; hb 13:37 09:48 Chief complaint: Right upper chest pain, palpitations, and SOB x 2 days, left me1 sided chest pain after mechanical fall from standing today. hb 14:26 09:48 Chief complaint: Right upper chest pain, palpitations, and SOB x 2 days, left me1 sided chest pain after mechanical fall from standing today. me1
--- NOTE | 2024-12-14 17:25 | EDPHYS ---
Physician Documentation [facility] Name: Brina Villa Age: 19 yrs Sex: Female : 2005 Arrival Date: 12/14/2024 Time: 08:57 Bed 26 Private MD: ED Physician Anuel Mason HPI: 12/14 10:08 19-year-old female comes to the emergency department complaining of chest pain and jj9 shortness of breath. The patient has history of POTS and thinks that this may be an exacerbation of her symptoms. Past medical history significant for POTS as well as hypotension, possibly gastroparesis and irritable bowel disease. Denies fever, chills, nausea or vomiting. . 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 - Infectious Disease History:: Denies. - Social history:: Smoking status: Reported history of juuling and/or vaping. ROS: 10:09 Constitutional: Negative for fever, chills, and weight loss, jj9 10:09 Eyes: Negative for injury, pain, redness, and discharge, ENT: Negative for injury, pain, and discharge, Neck: Negative for injury, pain, and swelling, Cardiovascular: chest pain, SOB Respiratory: Shortness of breath Abdomen/GI: Negative for abdominal pain, nausea, vomiting, diarrhea, and constipation, Back: Negative for injury and pain, : Negative for injury, bleeding, discharge, and swelling, MS/Extremity: Negative for injury and deformity, Skin: Negative for injury, rash, and discoloration, Neuro: Negative for headache, weakness, numbness, tingling, and seizure, Psych: Negative for depression, anxiety, suicide ideation, homicidal ideation, and hallucinations, Allergy/Immunology: Negative for hives, rash, and allergies, Endocrine: Negative for neck swelling, polydipsia, polyuria, polyphagia, and marked weight changes, Hematologic/Lymphatic: Negative for swollen nodes, abnormal bleeding, and unusual bruising, 10:09 Constitutional: Positive for Negative for Exam: 10:11 Constitutional: This is a well developed, well nourished patient who is awake, alert, jj9 and in no acute distress. Head/Face: Normocephalic, atraumatic. Eyes: Pupils equal round and reactive to light, extra-ocular motions intact. Lids and lashes normal. Conjunctiva and sclera are non-icteric and not injected. Cornea within normal limits. Periorbital areas with no swelling, redness, or edema. ENT: Nares patent. No nasal discharge, no septal abnormalities noted. Tympanic membranes are normal and external auditory canals are clear. Oropharynx with no redness, swelling, or masses, exudates, or evidence of obstruction, uvula midline. Mucous membranes moist. Neck: Trachea midline, no thyromegaly or masses palpated, and no cervical lymphadenopathy. Supple, full range of motion without nuchal rigidity, or vertebral point tenderness. No Meningismus. Chest/axilla: Normal chest wall appearance and motion. Nontender with no deformity. No lesions are appreciated. Cardiovascular: Regular rate and rhythm with a normal S1 and S2. No gallops, murmurs, or rubs. Normal PMI, no JVD. No pulse deficits. Respiratory: Lungs have equal breath sounds bilaterally, clear to auscultation and percussion. No rales, rhonchi or wheezes noted. No increased work of breathing, no retractions or nasal flaring. Abdomen/GI: Soft, non-tender, with normal bowel sounds. No distension or tympany. No guarding or rebound. No evidence of tenderness throughout. Back: No spinal tenderness. No costovertebral tenderness. Full range of motion. Skin: Warm, dry with normal turgor. Normal color with no rashes, no lesions, and no evidence of cellulitis. MS/ Extremity: Pulses equal, no cyanosis. Neurovascular intact. Full, normal range of motion. Neuro: Awake and alert, GCS 15, oriented to person, place, time, and situation. Cranial nerves II-XII grossly intact. Motor strength 5/5 in all extremities. Sensory grossly intact. Cerebellar exam normal. Normal gait. Psych: Awake, alert, with orientation to person, place and time. Behavior, mood, and affect are within normal limits. 10:12 ECG was reviewed by the Attending Physician. Normal sinus rhythm, nonspecific ST and T abnormalities rate of 89 Vital Signs: 09:48 BP 97 / 62; Pulse 100; Resp 20; Temp 98.2; Pulse Ox 100% on R/A; Weight 36.29 kg; hb Height 4 ft. 9 in. ; Pain 8/10; 14:00 BP 100 / 60; Pulse 78; Resp 15; Pulse Ox 100% ; me1 15:00 BP 95 / 58; Pulse 73; Resp 16; Pulse Ox 100% ; me1 16:00 BP 95 / 62; Pulse 70; Resp 14; Pulse Ox 100% ; me1 17:00 BP 107 / 67; Pulse 83; Resp 13; Pulse Ox 100% ; me1 17:28 BP 97 / 60; Pulse 76; Resp 16; Temp 98.4; Pulse Ox 100% ; me1 09:48 Body Mass Index 17.31 (36.29 kg, 144.78 cm) hb 09:48 Pain Scale: Adult hb MDM: 10:01 Medical Screening Exam initiated 12/14 10:07 Order name: Basic Metabolic Panel; Complete Time: 12:53 12/14 10:07 Order name: CBC with Diff; Complete Time: 12:53 [facility] 12/14 10:07 Order name: Troponin HS; Complete Time: 12:53 [facility] 12/14 14:25 Order name: D-Dimer; Complete Time: 15:29 12/14 14:25 Order name: Troponin HS; Complete Time: 15:29 12/14 15:33 Order name: Test, Urine; Complete Time: 17:21 12/14 10:07 Order name: XRAY Chest (1 view); Complete Time: 12:53 12/14 15:30 Order name: CT Chest For PE Angio; Complete Time: 17:21 [facility] 12/14 10:01 Order name: EKG; Complete Time: 10:02 12/14 10:01 Order name: EKG - Nurse/Tech; Complete Time: 10:01 12/14 10:07 Order name: Cardiac monitoring; Complete Time: 13:37 [facility] 12/14 10:07 Order name: IV Saline Lock; Complete Time: 10:26 12/14 10:07 Order name: Labs collected and sent; Complete Time: 10:26 12/14 10:07 Order name: O2 Per Protocol; Complete Time: 13:37 j9 12/14 10:07 Order name: O2 Sat Monitoring; Complete Time: 13:37 j Administered Medications: No medications were administered Disposition Summary: 12/14/24 17:24 Discharge Ordered Notes: Location: Home jj9 Problem: new jj9 Condition: Stable jj9 Diagnosis - Chest pain, unspecified jj9 Followup: jj9 - With: Private Physician - When: - Reason: Re-evaluation by your physician Discharge Instructions: - Discharge Summary Sheet jj9 - Nonspecific Chest Pain, Adult jj9 Forms: - Medication Reconciliation Form j9 - Antibiotic Education j9 - Prescription Opioid Use j9 - Patient Portal Instructions j9 - Leadership Thank You Letter jj9 Signatures: Dispatcher [employer] EDMS Coral Fischer, RN RN Massiel Bradley RN RN me1 Anuel Mason MD MD jj9 Corrections: (The following items were deleted from the chart) 10:08 10:08 Chest Single View+RAD.RAD.BRZ ordered. EDMS EDMS 15:34 15:34 Test, Urine+UC.LAB.BRZ ordered. EDMS EDMS
[2024-12-14 22:06] VITALS: O2SAT 100
[2024-12-14 22:12] VITALS: BP 97/60; TEMP 98.4
--- NOTE | 2024-12-15 12:31 | EKG ---
Test Date: 2024-12-14 Test Time: 09:54:43 Consumer Analyst: HB MEASUREMENT RESULTS: Intervals: Rate: 89 IA: 116 QRSD: 84 QT: 378 QTc: 459 [place]: P: 78 IA: 116 QRS: 78 T: 108 INTERPRETIVE STATEMENTS: Normal sinus rhythm Nonspecific ST and T wave abnormality Abnormal ECG Compared to ECG 11/17/2024 17:27:01 ST (T wave) deviation now present Short IA interval no longer present Electronically Signed On 12-15-24 12:26:08 CDT by Tobi Mccarthy
== END 2024-12-14 17:33 | disposition home or self-care (01) ==
LOC: ER 08:57
DX: R07.9 Chest pain, unspecified (principal); R06.02 Shortness of breath; G90.A Postural orthostatic tachycardia syndrome [POTS]
CPT/HCPCS: 36415; 71045; 71275; 80048; 81025; 84484; 85025; 85379; 93005; 99284; Q9967

== ENCOUNTER 2024-12-17 12:13 | Emergency (ER) | payer SELFPAY ==
[2024-12-17] MEDS ORDERED: NA CHLORIDE 0.9% 1,000 ML ONE (13:21)
[2024-12-17] MEDS ORDERED: KETOROLAC 30 MG/ML INJ ONE (13:21)
[2024-12-17 13:26] LABS: Specific Gravity 1.009 (1.005-1.030)
[2024-12-17 13:32] LABS: Specific Gravity 1.009 (1.005-1.030); Sqamous Epithelial <5 /HPF (None Seen); Urine Bacteria None Seen /HPF (<20); Urine Bilirubin NEGATIVE (Negative); Urine Blood 1+ (Negative); Urine Clarity Clear (Clear); Urine Color Colorless (Yellow); Urine Culture Reflex Order NOT NEEDED; Urine Glucose NEGATIVE (Negative); Urine Ketones NEGATIVE (Negative); Urine Micro Reflex YN NO BILL MICROSCOPIC; Urine Mucus Slight /HPF (None Seen); Urine Nitrite NEGATIVE (Negative); Urine Protein NEGATIVE (Negative); Urine RBC <5 /HPF (None Seen); Urine Urobilinogen Normal (Normal); Urine WBC <5 /HPF (<5)
[2024-12-17 13:44] LABS: ALT/SGPT 20 U/L (13-56); AST/SGOT 19 U/L (15-37); Absolute Monocytes 0.2 K/uL (0.1-1.3); Absolute Neutrophil 2.6 K/uL (1.8-8.0); Albumin 3.4 g/dL (3.4-5.0); Albumin/Globulin Ratio 0.9 (1.1-1.8); Alkaline Phosphatase 66 U/L (45-117); Anion Gap 8.6 mEq/L (5.0-15.0); BUN Blood Urea Nitrogen 7 mg/dL (7-18); Basophils % 0.4 % (0-1.3); Bicarbonate 23 mEq/L (21-32); Bilirubin Direct < 0.2 mg/dL (0-0.2); Bilirubin Total 0.2 mg/dL (0.2-1.0); Eosinophils % 0.7 % (0-4.4); Globulin 3.7 g/dL (2.3-3.5); Glomerular Filtration Rate 134 ml/min (=/>90); Glucose Level 78 mg/dL (74-106); Hematocrit 23.9 % (36.0-45.0); Hemoglobin 7.6 g/dL (12.0-15.0); Lymphocytes % 26.3 % (15.3-44.8); MCH 24.1 pg (27.0-35.0); MCHC 31.9 g/dL (32.0-36.0); MCV 75.6 fL (80-100); Monocytes % 6.2 % (3.3-12.3); Neutrophils % 66.4 % (41.7-73.7); Nucleated Red Blood Cells % 0.1 % (0-0); Platelets 268 thou/uL (152-406); Potassium 3.6 mEq/L (3.5-5.1); Protein, Total 7.1 g/dL (6.4-8.2); RBC Red Blood Cell Count 3.16 M/uL (3.86-4.86); Red Cell Distribution Width 14.9 % (12.1-15.2); Sodium Level 140 mEq/L (136-145); Troponin High Sensitivity < 3.0 pg/mL (<58.9)
--- NOTE | 2024-12-17 14:18 | ER ---
Nurse's Notes [facility] Name: Brina Villa Age: 19 yrs Sex: Female : 2005 Arrival Date: 12/17/2024 Time: 12:13 Bed 18 Private MD: Diagnosis: Hypotension, unspecified Presentation: 12/17 12:23 Chief complaint: EMS states: PICKED UP FROM PCP OFFICE FOR LOW BP 82/62. FOLLOWED UP db FOR DIZZINESS AND WEAKNESS. POSITIVE ORTHOSTATICS. HR INCREASED TO 130 WHEN STANDING. ON PERIOD NOW. D-DIMER ELEVATED. SEEING CONCRETE PAVER FOR ADRENAL INSUFFICIENCY R/O. Coronavirus screen: Client denies travel out of the [place] in the last 14 days. At this time, the client does not indicate any symptoms associated with coronavirus-19. Ebola Screen: Patient negative for fever greater than or equal to 101.5 degrees Fahrenheit, and additional compatible Ebola Virus Disease symptoms Patient denies exposure to infectious person. Patient denies travel to an Ebola-affected area in the 21 days before illness onset. No symptoms or risks identified at this time. Initial Sepsis Screen: Does the patient meet any 2 criteria? No. Patient's initial sepsis screen is negative. Initial Sepsis Screen: Does the patient have a suspected source of infection? No. Patient's initial sepsis screen is negative. Risk Assessment: Do you want to hurt yourself or someone else? Patient reports no desire to harm self or others. Onset of symptoms was December 17, 2024. 12:23 Acuity: DEEP 2 db 12:23 Method Of Arrival: EMS: [facility] db 12:23 Care prior to arrival: Medication(s) given: Normal saline infusion, 500 mL, zofran 4 db mg, IV initiated. 20 GA, in the right antecubital area, Glucose check: 72. Triage Assessment: 12:26 General: Appears in no apparent distress. comfortable, Behavior is calm, cooperative. db Pain: Denies pain. Neuro: Level of Consciousness is awake, alert, obeys commands, Oriented to person, place, time, situation. Respiratory: Airway is patent Respiratory effort is even, unlabored, Respiratory pattern is regular, symmetrical. 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 - Infectious Disease History:: Denies. - Social history:: Smoking status: Patient denies any tobacco usage or history of. Screenin:35 [facility] ED Fall Risk Assessment (Adult) History of falling in the last 3 months, db including since admission No falls in past 3 months (0 pts) Confusion or Disorientation No (0 pts) Intoxicated or Sedated No (0 pts) Impaired Gait No (0 pts) Mobility Assist Device Used No (0 pt) Altered Elimination No (0 pt) Score/Fall Risk Level 0 - 2 = Low Risk Oriented to surroundings, Maintained a safe environment. Abuse screen: Denies threats or abuse. Denies injuries from another. Nutritional screening: No deficits noted. Tuberculosis screening: No symptoms or risk factors identified. Assessment: 12:28 Reassessment: SEE TRIAGE FOR INITIAL ASSESSMENT. db 13:38 Reassessment: Patient appears in no apparent distress at this time. Patient and/or db family updated on plan of care and expected duration. Pain level reassessed. Patient is alert, oriented x 3, equal unlabored respirations, skin warm/dry/pink. General: Appears in no apparent distress. comfortable, Behavior is calm, cooperative. Neuro: Level of Consciousness is awake, alert, obeys commands, Oriented to person, place, time, situation. Respiratory: Airway is patent Respiratory effort is even, unlabored, Respiratory pattern is regular, symmetrical. 14:13 Reassessment: Patient appears in no apparent distress at this time. Patient and/or db family updated on plan of care and expected duration. Pain level reassessed. Patient is alert, oriented x 3, equal unlabored respirations, skin warm/dry/pink. Patient states feeling better. Patient states symptoms have improved. Vital Signs: 12:23 Weight 34.02 kg; Height 4 ft. 9 in. ; db 12:35 BP 92 / 59; Pulse 86; Resp 22; Temp 98.8(O); Pulse Ox 96% ; db 13:00 BP 98 / 56; Pulse 94; Resp 16; Pulse Ox 100% on R/A; db 13:56 BP 101 / 64; ec2 14:00 BP 97 / 56; Pulse 68; Resp 18; Pulse Ox 100% on R/A; db 12:23 Body Mass Index 16.23 (34.02 kg, 144.78 cm) db ED Course: 12:21 Patient arrived in ED. db 12:26 Triage completed. db 12:26 Arm band placed on Patient placed in an exam room. db 12:28 Patient has correct armband on for positive identification. Bed in low position. Call db light in reach. Side rails up X2. Client placed on continuous cardiac and pulse oximetry monitoring. NIBP monitoring applied. 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 Pulse ox on. NIBP on. Warm blanket given. 12:28 Maintain EMS IV. Dressing intact. Good blood return noted. Site clean \T\ dry. Gauge \T\ db site: 20G RAC. 12:30 Carolina Gonzales RN is Primary Nurse. db 12:31 Lior Marie MD is Attending Physician. ec2 13:00 Initial lab(s) drawn, by ED staff, sent to lab. EKG done. db 14:27 Provided Education on: DISCHARGE AND FOLLOWUP. db 14:27 No provider procedures requiring assistance completed. IV discontinued, intact, db bleeding controlled, No redness/swelling at site. Administered Medications: 13:25 Drug: NS 0.9% IV 1000 ml IV at 1000 ml once; to be given as a bolus over 60 minutes db Route: IV; Rate: 1000 ml; Site: right antecubital; 14:28 Follow up: Response: No adverse reaction; IV Status: Completed infusion; IV Intake: db 1000ml 13:25 Drug: Ketorolac IVP 15 mg IVP once Route: IVP; Site: right antecubital; db 14:28 Follow up: Response: No adverse reaction db Medication: 12:36 VIS not applicable for this client. db Intake: 14:28 IV: 1000ml; Total: 1000ml. db Outcome: 14:17 Discharge ordered by . ec2 14:27 Discharged to home ambulatory, db 14:27 Condition: stable 14:27 Discharge instructions given to patient, Instructed on discharge instructions, follow up and referral plans. 14:45 Patient left the ED. db Signatures: Carolina Gonzales RN RN db Lior Marie MD MD ec2 Corrections: (The following items were deleted from the chart) 12: 12:23 Method Of Arrival: EMS: [facility] db db
--- NOTE | 2024-12-17 14:18 | EDPHYS ---
Physician Documentation [facility] Name: Brina Villa Age: 19 yrs Sex: Female : 2005 Arrival Date: 12/17/2024 Time: 12:13 Bed 18 Private MD: ED Physician Lior Marie HPI: 12/17 12:56 This 19 yrs old Female presents to ER via EMS with complaints of General Weakness. ec2 12:56 Patient arrives today for evaluation of generalized weakness. Patient has been having ec2 months of bouts of lightheadedness, weakness. Was previously diagnosed with POTS syndrome, previously diagnosed with gastroparesis. Reports general poor p.o. intake. No urinary complaints, no cough and cold symptoms, no chest pain.. 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 - Infectious Disease History:: Denies. - Social history:: Smoking status: Patient denies any tobacco usage or history of. ROS: 12:58 Constitutional: as per hpi ec2 Exam: 12:58 Constitutional: GEN: NAD Head: atraumatic Eyes: EOMI Ears: External ears are ec2 normal. CV: regular rate LUNGS: no respiratory distress ABD: non-distended SKIN: no evidence of rashes MSK: no evidence of trauma Vital Signs: 12:23 Weight 34.02 kg; Height 4 ft. 9 in. ; db 12:35 BP 92 / 59; Pulse 86; Resp 22; Temp 98.8(O); Pulse Ox 96% ; db 13:00 BP 98 / 56; Pulse 94; Resp 16; Pulse Ox 100% on R/A; db 13:56 BP 101 / 64; ec2 14:00 BP 97 / 56; Pulse 68; Resp 18; Pulse Ox 100% on R/A; db 12:23 Body Mass Index 16.23 (34.02 kg, 144.78 cm) db MDM: 12:47 Medical Screening Exam initiated ec2 12:58 Data reviewed: vital signs, nurses notes. ED course: Patient arrives today for ec2 evaluation of generalized weakness. Examination is unrevealing. Will obtain lab work, urine studies, test, treat the patient with Toradol for generalized body pain as well as give the patient crystalloid. Currently evaluating for processes such as anemia, electrolyte disturbances, dehydration. 13:32 ED course: EKG independently reviewed and interpreted by me, shows normal sinus rhythm, ec2 rate of 79, no acute ST segment elevations, intervals are nonactionable.. 13:49 ED course: Metabolic profile reassuring, CBC shows anemia with a hemoglobin of 7.6. ec2 LFTs nonactionable. Urine is noninfectious, negative troponin, negative testing.. 13:50 ED course: Patient with anemia, when compared to external records, is similarly low.. ec2 14:17 ED course: On reassessment patient reports marked improvement in symptoms. Will ec2 discharge home. Presentation consistent with patient's known POTS.. 03 12:55 Order name: Basic Metabolic Panel; Complete Time: 13:49 ec2 12/17 12:55 Order name: CBC with Diff; Complete Time: 13:49 ec2 12/17 12:55 Order name: LFT's; Complete Time: 13:49 ec2 12/17 12:55 Order name: Troponin HS; Complete Time: 13:49 ec2 12/17 12:55 Order name: UAM; Complete Time: 13:49 ec2 12/17 12:58 Order name: Test, Urine; Complete Time: 13:49 ec2 12/17 12:55 Order name: EKG; Complete Time: 12:56 ec2 12/17 12:55 Order name: Cardiac monitoring; Complete Time: 13:38 ec2 12/17 12:55 Order name: EKG - Nurse/Tech; Complete Time: 13:38 ec2 12/17 12:55 Order name: IV Saline Lock; Complete Time: 13:38 ec2 12/17 12:55 Order name: Labs collected and sent; Complete Time: 13:38 ec2 12/17 12:55 Order name: O2 Per Protocol; Complete Time: 13:38 ec2 12/17 12:55 Order name: O2 Sat Monitoring; Complete Time: 13:37 ec2 Administered Medications: 13:25 Drug: NS 0.9% IV 1000 ml IV at 1000 ml once; to be given as a bolus over 60 minutes db Route: IV; Rate: 1000 ml; Site: right antecubital; 14:28 Follow up: Response: No adverse reaction; IV Status: Completed infusion; IV Intake: db 1000ml 13:25 Drug: Ketorolac IVP 15 mg IVP once Route: IVP; Site: right antecubital; db 14:28 Follow up: Response: No adverse reaction db Disposition Summary: 12/17/24 14:17 Discharge Ordered Notes: Location: Home ec2 Condition: Stable ec2 Diagnosis - Hypotension, unspecified ec2 Followup: ec2 - With: Private Physician - When: - Reason: Re-evaluation by your physician Discharge Instructions: - Discharge Summary Sheet ec2 - Near-Syncope, [id number] ec2 Forms: - Work release form db - Medication Reconciliation Form ec2 - Antibiotic Education ec2 - Prescription Opioid Use ec2 - Patient Portal Instructions ec2 - Leadership Thank You Letter ec2 Signatures: Dispatcher [employer] Carolina Lovett RN RN Lior Lance MD MD ec2
[2024-12-17 14:52] VITALS: TEMP 98.8
[2024-12-17 14:57] VITALS: BP 97/56; O2SAT 100
--- NOTE | 2024-12-20 12:09 | EKG ---
Test Date: 2024-12-17 Test Time: 13:27:52 Inside Account Executive: AM MEASUREMENT RESULTS: Intervals: Rate: 79 NV: 108 QRSD: 88 QT: 390 QTc: 447 [place]: P: 60 NV: 108 QRS: 93 T: 77 INTERPRETIVE STATEMENTS: Sinus rhythm with short NV Septal infarct, age undetermined Abnormal ECG Compared to ECG 12/14/2024 09:54:43 Short NV interval now present Myocardial infarct finding now present ST (T wave) deviation no longer present Electronically Signed On 12-20-24 12:02:47 CDT by Tobi Mccarthy
== END 2024-12-17 14:45 | disposition home or self-care (01) ==
LOC: ER 12:13
DX: I95.9 Hypotension, unspecified (principal)
CPT/HCPCS: 36415; 80048; 80076; 81001; 81025; 84484; 85025; 93005; 96361; 96374; 99285; J7030